=== PATIENT | female | born 1990 | race African-American/Black ===

== ENCOUNTER 2018-09-23 02:33 | Emergency (ER) | payer SELFPAY ==
[~2018-09-23] VITALS: Ht 180.3 cm; Wt 113.4 kg
[2018-09-23 02:43] VITALS: BP 157/89
--- NOTE | 2018-09-23 02:43 | NUR ---
ED Nurse Note: pt came toe d with RA 68 due to ETOH per pt she drank too much because she lost her mom
--- NOTE | 2018-09-23 02:58 | NUR ---
ED Nurse Note: urine and blood specimen sent to lab
[2018-09-23 03:04] LABS: APPEARANCE,URINE CLEAR; BILIRUBIN, URINE NEGATIVE (NEGATIVE); COLOR,URINE PALE YELLOW; GLUCOSE, URINE (UA) NEGATIVE (NEGATIVE); KETONES,URINE NEGATIVE (NEGATIVE); LEUKOCYTE ESTERASE ,URINE NEGATIVE (NEGATIVE); NITRITE,URINE NEGATIVE (NEGATIVE); PH,URINE 6 (4.5-8.0); PROTEIN,URINE NEGATIVE (NEGATIVE); UROBILINOGEN,URINE NORMAL MG/DL (0.0-1.0)
--- NOTE | 2018-09-23 03:07 | Emergency Room Report ---
History of Present Illness General Chief Complaint: Alcohol Intoxication Source: Patient, EMS Present Illness HPI EMS was called to a bar where this patient had been drinking alcohol. She also admits to doing cocaine and THC. She's lamenting her mother's (2011). She denies suicidal ideation and is embarrassed about drinking some much. She' s been vomiting also. She has a slight amount of epigastric pain. Her last period was September 11. She takes medicine for anxiety on occasion. She denies any head trauma. She's denies fevers but has been breaking out in sweats when she' s been vomiting. She denies dysuria, diarrhea, melena, hematemesis. No chills, chest pain, palpitations, shortness of breath, visual changes, headache. She lost her psychiatric support when she moved to [place]. Allergies: Coded Allergies: METOCLOPRAMIDE (Verified Allergy, Unknown, 09/23/18) Patient History Past Medical History: see triage record Social History: Reports: smoking, alcohol use, drug use Social History Narrative recently has moved to [place] Reviewed Nursing Documentation: PMH: Agreed; PSxH: Agreed Nursing Documentation-PM Past Medical History: No History, Except For History Of Psychiatric Problem: Yes - Anxiety per RA 66 Review of Systems All Other Systems: negative except mentioned in HPI Physical Exam Vital Signs Date Time Temp Pulse Resp B/P (MAP) Pulse Ox O2 Delivery O2 Flow Rate FiO2 09/23/18 02:35 97.9 99 20 99 Room Air 09/23/18 02:43 157/89 Sp02 EP Interpretation: reviewed, normal General Appearance: well appearing, no apparent distress, lethargic Head: normocephalic, atraumatic Eyes: bilateral eye PERRL, bilateral eye EOMI, bilateral eye Scleral Injection ENT: moist mucus membranes Neck: supple Respiratory: lungs clear, normal breath sounds Cardiovascular #1: regular rate, rhythm Cardiovascular #2: 2+ radial (R) Gastrointestinal: normal inspection, normal bowel sounds, non tender - reported epigastric, no mass, non-distended Musculoskeletal: back normal, normal range of motion Neurologic: alert, oriented x3, motor strength/tone normal, DTRs symmetric, sensory intact, other - ataxia, somewhat slurred Psychiatric: no suicidal/homicidal ideation, depressed affect Skin: normal inspection, warm/dry Medical Decision Making Diagnostic Impression: Primary Impression: Substance abuse Additional Impression: Grief reaction ER Course Patient presents unsteady on her feet after admitting to several different substance ingestions. Differential includes substance abuse, electrolyte imbalance, alcohol abuse amongst others. Patient is alert and has a gag reflex but is ataxic and has nystagmus. Patient will be evaluated with labs. Based on her neurologic exam at this time CT is not indicated. The lungs are clear and she's not coughing. Chest x-ray is not indicated. The patient will be treated with IV hydration and Zofran at this time. BAL elevated. +THC and cocaine. Sleeping in NAD. Awake - joshua PO. Denies SI or HI. Has sister who will picking machine operator helper. Patient stable for outpatient observation and treatment. Laboratory Tests Test 09/23/18 02:41 09/23/18 02:50 Urine Color Pale yellow Urine Appearance Clear Urine pH 6 (4.5-8.0) Urine Specific Baker 1.005 (1.005-1.035) Urine Protein Negative (NEGATIVE) Urine Glucose (UA) Negative (NEGATIVE) Urine Ketones Negative (NEGATIVE) Urine Blood Negative (NEGATIVE) Urine Nitrite Negative (NEGATIVE) Urine Bilirubin Negative (NEGATIVE) Urine Urobilinogen Normal MG/DL (0.0-1.0) Urine Leukocyte Esterase Negative (NEGATIVE) Urine HCG, Qualitative Negative (NEGATIVE) Urine Opiates Screen Negative (NEGATIVE) Urine Barbiturates Screen Negative (NEGATIVE) Phencyclidine (PCP) Screen Negative (NEGATIVE) Urine Amphetamines Screen Negative (NEGATIVE) Urine Benzodiazepines Screen Negative (NEGATIVE) Urine Cocaine Screen Positive (NEGATIVE) H Urine Marijuana (THC) Screen Positive (NEGATIVE) H White Blood Count 7.2 K/UL (4.8-10.8) Red Blood Count 5.00 M/UL (4.20-5.40) Hemoglobin 13.5 G/DL (12.0-16.0) Hematocrit 41.3 % (37.0-47.0) Mean Corpuscular Volume 83 FL (80-99) Mean Corpuscular Hemoglobin 26.9 PG (27.0-31.0) L Mean Corpuscular Hemoglobin Concent 32.6 G/DL (32.0-36.0) Red Cell Distribution Width 16.0 % (11.6-14.8) H Platelet Count 294 K/UL (150-450) Mean Platelet Volume 6.1 FL (6.5-10.1) L Neutrophils (%) (Auto) 54.8 % (45.0-75.0) Lymphocytes (%) (Auto) 36.6 % (20.0-45.0) Monocytes (%) (Auto) 5.4 % (1.0-10.0) Eosinophils (%) (Auto) 1.6 % (0.0-3.0) Basophils (%) (Auto) 1.6 % (0.0-2.0) Sodium Level 137 MMOL/L (136-145) Potassium Level 2.8 MMOL/L (3.5-5.1) L Chloride Level 102 MMOL/L (98-107) Carbon Dioxide Level 23 MMOL/L (21-32) Anion Gap 7 mmol/L (5-15) Blood Urea Nitrogen 7 mg/dL (7-18) Creatinine 1.0 MG/DL (0.55-1.30) Estimate Glomerular Filtration Rate > 60 mL/min (>60) Glucose Level 107 MG/DL (74-106) H Calcium Level 9.0 MG/DL (8.5-10.1) Total Bilirubin 0.3 MG/DL (0.2-1.0) Aspartate Amino Transferase (AST) 23 U/L (15-37) Alanine Aminotransferase (ALT) 25 U/L (12-78) Alkaline Phosphatase 78 U/L (46-116) Total Protein 8.2 G/DL (6.4-8.2) Albumin 3.7 G/DL (3.4-5.0) Globulin 4.5 g/dL Albumin/Globulin Ratio 0.8 (1.0-2.7) L Salicylates Level 5.2 ug/mL (2.8-20) Acetaminophen Level < 2 MCG/ML (10-30) L Serum Alcohol 213 mg/dL Rhythm Strip Diag. Results EP Interpretation: yes Rhythm: NSR, no PVC's Last Vital Signs Date Time Temp Pulse Resp B/P (MAP) Pulse Ox O2 Delivery O2 Flow Rate FiO2 09/23/18 07:09 97.9 79 21 147/89 99 Room Air Status: improved Disposition: HOME, SELF-CARE Condition: Improved Referrals: NOT CHOSEN IPA/,REFERRING (PCP) Ga Banks MD September 23, 2018 03:07
[2018-09-23 03:08] LABS: BASOPHILS % (AUTO) 1.6 % (0.0-2.0); EOSINOPHILS % (AUTO) 1.6 % (0.0-3.0); HEMATOCRIT 41.3 % (37.0-47.0); HEMOGLOBIN 13.5 G/DL (12.0-16.0); LYMPHOCYTES % (AUTO) 36.6 % (20.0-45.0); MEAN CORPUSCULAR VOLUME 83 FL (80-99); MONOCYTES % (AUTO) 5.4 % (1.0-10.0); NEUTROPHILS % (AUTO) 54.8 % (45.0-75.0); PLATELET COUNT 294 K/UL (150-450); WHITE BLOOD COUNT 7.2 K/UL (4.8-10.8)
[2018-09-23 03:25] LABS: ALANINE AMINOTRANSFERASE 25 U/L (12-78); ALBUMIN 3.7 G/DL (3.4-5.0); ALBUMIN/GLOBULIN RATIO 0.8 (1.0-2.7); ALKALINE PHOSPHATASE 78 U/L (46-116); ANION GAP 7 mmol/L (5-15); ASPARTATE AMINO TRANSFERASE 23 U/L (15-37); BILIRUBIN,TOTAL 0.3 MG/DL (0.2-1.0); BLOOD UREA NITROGEN 7 mg/dL (7-18); CARBON DIOXIDE 23 MMOL/L (21-32); CHLORIDE 102 MMOL/L (98-107); POTASSIUM 2.8 MMOL/L (3.5-5.1); SODIUM 137 MMOL/L (136-145)
[2018-09-23 04:00] VITALS: BP 147/80
--- NOTE | 2018-09-23 04:02 | NUR ---
CHRISTIE is here.
--- NOTE | 2018-09-23 04:02 | NUR ---
Demetrio rehman in EDM - 09/23/18 at 0402 by JUAN CARLOS ED Nurse Note: CHRISTIE at bedside
[2018-09-23 06:30] VITALS: BP 147/89
[2018-09-23 07:09] VITALS: BP 147/89
--- NOTE | 2018-09-23 07:11 | NUR ---
ER DISCHARGE NOTE: Patient is cleared to be discharged per ERMD, pt is aox4, on room air, with stable vital signs. pt was given dc and prescription instructions, pt was able to verbalize understanding, pt id band and iv site removed without complications. pt is able to ambulate with steady gait. pt took all belongings.
--- NOTE | 2018-09-23 07:11 | NUR ---
ER DISCHARGE NOTE: Patient is cleared to be discharged per ERMD, pt is aox4, on room air, with stable vital signs. pt was given dc and prescription instructions, pt was able to verbalize understanding, pt id band and iv site removed without complications. pt is able to ambulate with steady gait with friend. pt took all belongings.
[2018-09-23] MEDS ORDERED: NKM (08:40)
[2018-09-23] MEDS ORDERED: ZOFRAN4 MG ORAL (08:46)
== END 2018-09-23 07:11 | disposition home or self-care (01) ==
LOC: EDBD 02:33 → EMR 02:47
DX: F14.10 Cocaine abuse, uncomplicated (principal); F12.10 Cannabis abuse, uncomplicated; F43.20 Adjustment disorder, unspecified; Z88.8 Allergy status to other drugs, medicaments and biological substances; R11.10 Vomiting, unspecified; R10.13 Epigastric pain; F41.9 Anxiety disorder, unspecified
CPT/HCPCS: 36415; 80053; 80307; 81003; 81025; 85025; 96361; 96374; 99284; G0480; J2405; 80329

== ENCOUNTER 2018-09-23 08:32 | Emergency (ER) | payer SELFPAY ==
[~2018-09-23] VITALS: Ht 172.7 cm; Wt 90.7 kg
[2018-09-23] MEDS ORDERED: NKM (08:40)
[2018-09-23] MEDS ORDERED: Ondansetron ODT 8mg tab ORAL ONE (08:45)
[2018-09-23] MEDS ORDERED: Ketorolac 60mg Inj IM ONE (08:45)
[2018-09-23] MEDS ORDERED: ZOFRAN4 MG ORAL (08:46)
[2018-09-23 08:58] VITALS: BP 113/79
--- NOTE | 2018-09-23 08:58 | NUR ---
ED Nurse Note:pt given dc aci and script after meds given. pt with nausea no active vomiting . aware and agreest to fu plan amb steady gait out of ed.
--- NOTE | 2018-09-23 09:03 | Emergency Room Report ---
History of Present Illness General Chief Complaint: Vomiting Source: Patient Present Illness HPI Patient was abusing drugs piercing in our emergency department and just discharged. When discharge patient states that she felt fine but however after she got home she began to have nausea and vomiting and some mild headache. Patient states that this headache is fairly typical for her she does have a migraine headache. And she would like some pain medications. In addition she would like some nausea medications. She denies any visual changes fever neck pain neck stiffness photophobia. No other complaints are noted. Symptoms noted to be mild to moderate. No other modifying factors. No other associated signs and symptoms. No other complaints were noted. Allergies: Coded Allergies: METOCLOPRAMIDE (Verified Allergy, Unknown, 09/23/18) Patient History Past Medical History: asthma, psych hx - Bipolar, anxiety, other - Irritable bowel syndrome Past Surgical History: none Pertinent Family History: none Social History: Reports: smoking, alcohol use, drug use Last Menstrual Period: 09/06/18 Now: No Reviewed Nursing Documentation: PMH: Agreed; PSxH: Agreed Nursing Documentation-PMH Past Medical History: No History, Except For Hx Asthma: Yes Hx Gastrointestinal Problems: Yes - IBS History Of Psychiatric Problem: Yes - BIPOLAR, ANXIETY Review of Systems All Other Systems: negative except mentioned in HPI Physical Exam Vital Signs Date Time Temp Pulse Resp B/P (MAP) Pulse Ox O2 Delivery O2 Flow Rate FiO2 09/23/18 08:36 98.1 88 18 96 Room Air Sp02 EP Interpretation: reviewed, normal General Appearance: normal inspection, well appearing, no apparent distress, alert Head: atraumatic Eyes: bilateral eye normal inspection ENT: normal ENT inspection, hearing grossly normal, normal voice Neck: normal inspection, full range of motion, supple, no bony tend Respiratory: normal inspection, lungs clear, normal breath sounds, no respiratory distress, no retraction, no wheezing Cardiovascular #1: regular rate, rhythm, no edema Gastrointestinal: normal inspection, normal bowel sounds, non tender, soft, no guarding, no hernia Genitourinary: no CVA tenderness Musculoskeletal: normal inspection, back normal, normal range of motion Neurologic: normal inspection, alert, responsive, speech normal Psychiatric: normal inspection, judgement/insight normal, mood/affect normal Skin: normal inspection, normal color, no rash Medical Decision Making Diagnostic Impression: Primary Impression: Drug abuse Additional Impression: Vomiting ER Course Patient presents emergency department today complaining abusing drugs and having headache and vomiting. Differential considerations include drug abuse, drug withdrawal, dehydration just name a few. Patient's exam is fairly benign. However given patient's presentation I feel the patient would benefit from medications. Patient was given 1 dose of Toradol as well as Zofran with significant improvement symptoms. Given the patient feels much better and is stable for discharge requesting be discharged to feel this reasonable. Patient was advised to stop abusing drugs. Patient was given prescription for Zofran. Patient is advised to follow up with primary doctor in 2-3 days and return the emergency room for any worsening symptoms and as needed. Last Vital Signs Date Time Temp Pulse Resp B/P (MAP) Pulse Ox O2 Delivery O2 Flow Rate FiO2 09/23/18 08:36 98.1 88 18 96 Room Air Status: improved Disposition: HOME, SELF-CARE Condition: Stable Scripts Ondansetron (Zofran) 4 Mg Tablet 4 MG ORAL Q6H PRN for Nausea & Vomiting, #15 TAB 0 Refills Prov: Jemal Villalba MD 09/23/18 Referrals: NOT CHOSEN IPA/,REFERRING (PCP) Patient Instructions: Nausea and Vomiting, Adult, Drug Overdose Jemal Villalba MD September 23, 2018 09:03
== END 2018-09-23 09:00 | disposition home or self-care (01) ==
LOC: EMR 08:59
DX: F19.10 Other psychoactive substance abuse, uncomplicated (principal); R11.2 Nausea with vomiting, unspecified; F41.9 Anxiety disorder, unspecified; F31.9 Bipolar disorder, unspecified; K58.9 Irritable bowel syndrome, unspecified; F17.200 Nicotine dependence, unspecified, uncomplicated; Z88.8 Allergy status to other drugs, medicaments and biological substances; R51 Headache
CPT/HCPCS: 96372; 99283; Q0162